=== PATIENT | male | born 1950 | race Caucasian/White ===

== ENCOUNTER 2019-02-13 05:58 | Inpatient (IN) | payer OTHER ==
[~2019-02-13] VITALS: Ht 170.2 cm; Wt 69.4 kg
[2019-02-13] MEDS ORDERED: MILK175T2 PO (07:14)
[2019-02-13] MEDS ORDERED: CALC600T16 PO (07:14)
[2019-02-13] MEDS ORDERED: GINK60TA PO (07:14)
[2019-02-13] MEDS ORDERED: NIAC500T6 PO (07:14)
[2019-02-13] MEDS ORDERED: BIOT10002 PO (07:14)
[2019-02-13] MEDS ORDERED: ECHI350C PO (07:14)
[2019-02-13] MEDS ORDERED: MULT-1469 PO (07:14)
[2019-02-13] MEDS ORDERED: VITA-423 PO (07:14)
[2019-02-13] MEDS ORDERED: ceFAZolin 1,000 MG VIAL ONE (07:29)
[2019-02-13] MEDS ORDERED: BUPIVACAINE-MPF 0.25% 30 ML VIAL INJ ONE (07:30)
[2019-02-13] MEDS ORDERED: ONDANSETRON 4 MG/2 ML VIAL IVP PRN ×2 (07:35→17:50)
[2019-02-13] MEDS ORDERED: HYDROmorphone 1 MG/ML AMP IVP PRN ×2 (07:35→12:10)
[2019-02-13] MEDS ORDERED: fentaNYL 0.05 MG/ML VIAL ONE ×2 (07:39→11:44)
[2019-02-13] MEDS ORDERED: HYDROmorphone PFS 2 MG/ML SYR ONE (07:39)
[2019-02-13] MEDS ORDERED: PHENYLEPHRINE 10 MG/ML VIAL ONE (07:48)
[2019-02-13] MEDS ORDERED: PROPOFOL 200 MG/20 ML VIAL IV ONE (07:48)
[2019-02-13] MEDS ORDERED: LABETALOL 100 MG/20 ML VIAL ONE ×2 (07:48→11:53)
[2019-02-13] MEDS ORDERED: GLYCOPYRROLATE 0.2 MG/ML VIAL ONE (07:48)
[2019-02-13] MEDS ORDERED: ONDANSETRON 4 MG/2 ML VIAL ONE (07:48)
[2019-02-13] MEDS ORDERED: ROCURONIUM 50 MG/5 ML VIAL IV ONE (07:48)
[2019-02-13] MEDS ORDERED: KETOROLAC 30 MG/ML VIAL ONE (07:48)
[2019-02-13] MEDS ORDERED: SUCCINYLCHOLINE CHLORIDE 200 MG/10 ML VIAL IVP ONE (07:48)
[2019-02-13] MEDS ORDERED: hydrALAZINE 20 MG/ML VIAL ONE (07:48)
[2019-02-13] MEDS ORDERED: DEXAMETHASONE 4 MG/ML VIAL ONE (07:48)
[2019-02-13] MEDS ORDERED: DESFLURANE 240 ML BTL INH ONE (07:48)
[2019-02-13] MEDS ORDERED: MIDAZOLAM 2 MG/2 ML VIAL ONE (11:51)
[2019-02-13] MEDS ORDERED: NACL 0.9% 1,000 ML IV SCH (12:09)
[2019-02-13 12:10] VITALS: BP 133/65
[2019-02-13] MEDS ORDERED: ACETAMINOPHEN 325 MG TAB PO PRN (12:10)
[2019-02-13] MEDS ORDERED: MORPHINE SULFATE 4 MG/ML SYR IV PRN (12:10)
--- NOTE | 2019-02-13 12:10 | NUR ---
PT TRANSFERRED FROM DAY SURGERY S/P RIGHT INGUINAL HERNIA REPAIR DUE TO DIFFICULTY BREATHING AND DECREASED OXYGENATION. PT IS ON O2 MASK AT 6 LPM UPON ARRIVAL. HR 68, BP 158/86, SPO2 93%, RR 20. AFEBRILE, DENIES PAIN. PT IS AAOX4. FOLLOWS COMMAND AND ABLE TO MAKE NEEDS KNOWN. NORMAL SINUS RHYTHM ON MONITOR. S1 +S2 HEARD. ABDOMEN SOFT, NONTENDER, NONDISTENDED WITH ACTIVE BOWEL SOUNDS. THREE BAND-AIDS TO SURGICAL AREA DRY, CLEAN AND INTACT. NO DRAINAGE NOTED. PERIPHERAL IV G20 TO LEFT ANTECUBITAL PATENT AND INTACT. OTHER THAN THREE ABDOMINAL INCISIONS, SKIN IS INTACT, DRY AND WARM TO TOUCH. SCDS IN PLACE. PULSES PALPABLE TO ALL EXTREMITIES. HOB 30 DEGREES, BED IN LOWEST POSITION LOCKED. CALL LIGHT WITHIN REACH. WILL CONTINUE TO MONITOR.
--- NOTE | 2019-02-13 13:20 | NUR ---
DR. LUGO AT BEDSIDE.
--- NOTE | 2019-02-13 13:35 | NUR ---
PT SEEN BY DR. ESCOBAR. WILL FOLLOW UP ON ORDERS.
[2019-02-13 14:00] VITALS: BP 124/76
--- NOTE | 2019-02-13 14:50 | NUR ---
PT FEELS THE URGE TO URINATE. URINAL PROVIDED. PT UNABLE TO VOID AFTER TRYING A FEW MINUTES, STATED HE WILL REST AND WILL TRY AGAIN LATER. WILL CONTINUE TO MONITOR.
[2019-02-13 16:00] VITALS: BP 119/77
--- NOTE | 2019-02-13 16:40 | NUR ---
STRAIGHT CATHETERIZED ORDERED. 400 ML CLEAR YELLOE URINE OUTPUT NOTED. PT STATED HE FEELS BETTER.
--- NOTE | 2019-02-13 16:50 | NUR ---
PT C/O CHEST PAIN AT MID CHEST AREA. DR. ESCOBAR MADE AWARE. ORDERS RECEIVED.
[2019-02-13 17:09] LABS: BASOPHILS % (AUTO) 0.1 % (0.0-2.0); HEMOGLOBIN 16.1 g/dL (12.0-18.0); LYMPHOCYTES # (AUTO) 1.6 K/uL (2.0-11.5); LYMPHOCYTES % (AUTO) 12.7 % (20.5-51.1); MEAN CORPUSCULAR HEMOGLOBIN 33 pg (27-31); MEAN CORPUSCULAR HGB CONC 34 g/dL (33-37); MEAN CORPUSCULAR VOLUME 97.3 fL (80-94); MONOCYTES # (AUTO) 0.6 K/uL (0.8-1.0); MONOCYTES % (AUTO) 4.7 % (1.7-9.3); NEUTROPHILS # (AUTO) 10.4 K/uL (1.8-7.7); NEUTROPHILS % (AUTO) 82.5 % (42.2-75.2); PLATELET COUNT (AUTO) 217 K/uL (140-450); RED BLOOD CELL COUNT(AUTO) 4.93 MIL/uL (4.20-6.10); WHITE BLOOD COUNT (AUTO) 12.7 K/uL (4.8-10.8)
--- NOTE | 2019-02-13 17:10 | NUR ---
DR. PUENTE IN TO SEE AND EXAMINE PT. WILL FOLLOW UP ON ORDERS.
[2019-02-13 17:21] LABS: ANION GAP 14.4 (8-16); CARBON DIOXIDE 27.1 mmol/L (21-32); CREATININE 1.3 mg/dL (0.7-1.3); POTASSIUM 4.5 mmol/L (3.5-5.1)
--- NOTE | 2019-02-13 17:30 | NUR ---
OH IN TO SEE PT, MADE AWARE THAT PT C/O ANXIETY AND NAUSEA. ORDERS RECEIVED.
[2019-02-13] MEDS ORDERED: LORazepam 0.5 MG TAB PO PRN (17:50)
[2019-02-13] MEDS ORDERED: diphenhydrAMINE 50 MG CAP PO PRN (17:50)
[2019-02-13 18:00] VITALS: BP 112/62
--- NOTE | 2019-02-13 18:00 | NUR ---
TELEPHONE REPORT GIVEN TO OSMAN HOWE FROM TELEMETRY. PT TRANSFERRING TO TELEMETRY ROOM 120A. PT IN STABLE CONDITION. NO S/SX OF DISTRESS NOTED AT THIS TIME.
--- NOTE | 2019-02-13 18:15 | NUR ---
RECEIVED REPORT FROM OSMAN DEVLIN. PATIENT ON TELE MONITOR AND STANDARD PRECAUTIONS IN PLACE. PATIENT AAOX4 AND ON 4 L O2 NC, NO DISTRESS NOTED. SKIN INTACT. PATIENT AMBULATORY AND CONTINENT. [address] S/P R INGUINAL HERNIA REPAIR. IV ON L AC 20 G SALINE LOCK, IV ASYMPTOMATIC PATENT AND INTACT. BED IN LOW POSITION, CALL LIGHT WITHIN REACH, SIDE RAILS X2 UP
--- NOTE | 2019-02-13 19:23 | NUR ---
BEDSIDE REPORT GIVEN TO OSMAN RODRIGUEZ. PATIENT ENDORSED IN STABLE CONDITION
--- NOTE | 2019-02-13 19:30 | NUR ---
RECEIVED REPORT FROM DAY SHIFT NURSE. PATIENT AWAKE, ALERT, AND COOPERATIVE. S/P R INGUINAL HERNIA REPAIR [address] DRESSING INTACT AND DRY. RESPIRATION EVEN UNLABORED ON 4L O2 NC. NO DISTRESS NOTED. SKIN IS WARM AND DRY. IV PATENT AND INTACT. PATIENT AMBULATORY AND ABLE TO MAKE NEEDS KNOWN. PLAN OF CARE REVIEWED AND DISCUSSED. ALL SAFETY MEASURES IN PLACE. BED IN LOW POSITION. CALL LIGHT WITHIN REACH AND VERBALIZES ITS USE. WILL CONTINUE TO MONITOR.
[2019-02-13 20:00] VITALS: BP 108/62
--- NOTE | 2019-02-13 20:50 | NUR ---
PATIENT COMPLAINED OF RESTLESSNESS PRN ATIVAN GIVEN PER ORDER. WILL CONTINUE TO MONITOR
[2019-02-13] MEDS: SODIUM CHLORIDE FLUSH 10 ML SYR IVF SCH (20:51)
--- NOTE | 2019-02-13 22:30 | NUR ---
PATIENT TOOK OFF HIS NASAL CANNULA AND STATED "I DON'T NEED IT ANYMORE". EDUCATED THE RISK AND BENEFITS OF IT 2X STILL REFUSED. CHECKED PATIENT O2, PATIENT SATING 94% ON ROOM AIR. NO DISTRESS NOTED WILL CONTINUE TO MONITOR
[2019-02-13] MEDS ORDERED: ZOLPIDEM 10 MG TAB PO PRN (22:50)
--- NOTE | 2019-02-13 23:35 | NUR ---
PATIENT COMPLAINED OF NOT BEING ABLE TO FALL ASLEEP AND ASKED FOR SLEEPING AID. PRN AMBIEN ADMINISTERED PER ORDER. WILL CONTINUE TO MONITOR
[2019-02-14] VITALS: BP 108/61
--- NOTE | 2019-02-14 | NUR ---
VITALS WERE TAKEN. PATIENT CONDITION STABLE. NO DISTRESS NOTED. WILL CONTINUE TO MONITOR
--- NOTE | 2019-02-14 02:00 | NUR ---
CHECKED PATIENT. PATIENT SLEEPING RESPIRATION EVEN UNLABORED ON ROOM AIR SATING 94% NO DISTRESS NOTED. WILL CONTINUE TO MONITOR
[2019-02-14 04:00] VITALS: BP 111/69
--- NOTE | 2019-02-14 04:00 | NUR ---
VITALS WERE TAKEN. PATIENT CONDITION STABLE. NO DISTRESS NOTED. WILL CONTINUE TO MONITOR
[2019-02-14] MEDS: SODIUM CHLORIDE FLUSH 10 ML SYR IVF SCH (05:19)
[2019-02-14 06:31] LABS: BASOPHILS % (AUTO) 0.2 % (0.0-2.0); EOSINOPHILS % (AUTO) 0.2 % (0.0-4.0); HEMATOCRIT 43.3 % (36-52); HEMOGLOBIN 14.8 g/dL (12.0-18.0); LYMPHOCYTES # (AUTO) 2.4 K/uL (2.0-11.5); LYMPHOCYTES % (AUTO) 20.5 % (20.5-51.1); MEAN CORPUSCULAR HEMOGLOBIN 33 pg (27-31); MEAN CORPUSCULAR HGB CONC 34 g/dL (33-37); MEAN CORPUSCULAR VOLUME 96.1 fL (80-94); MONOCYTES # (AUTO) 1.2 K/uL (0.8-1.0); MONOCYTES % (AUTO) 10.2 % (1.7-9.3); NEUTROPHILS # (AUTO) 7.9 K/uL (1.8-7.7); NEUTROPHILS % (AUTO) 68.9 % (42.2-75.2); PLATELET COUNT (AUTO) 186 K/uL (140-450); RED CELL DISTRIBUTION WIDTH 13.9 % (11.6-13.7); WHITE BLOOD COUNT (AUTO) 11.5 K/uL (4.8-10.8)
--- NOTE | 2019-02-14 07:18 | NUR ---
ENDORSED PATIENT TO DAY SHIFT NURSE. PATIENT CONDITION STABLE.
--- NOTE | 2019-02-14 07:19 | NUR ---
RECEIVED REPORT FROM [employer] TE[employer] MEMBER NURSE JENNIFER FOR CONTINUITY OF CARE. PT IN STABLE CONDITION. RESPIRATIONS EVEN AND UNLABORED. ROOM AIR. IV INTACT AND PATENT. SAFETY MEASURES IN PLACE. CALL LIGHT AT BEDSIDE. WILL CONTINUE TO MONITOR.
--- NOTE | 2019-02-14 07:50 | NUR ---
PT REFUSED TO WEAR HAND [employer] AT THIS TIME.
--- NOTE | 2019-02-14 07:55 | NUR ---
[address] IF PT IS IN STABLE CONDITION, VITALS STABLE THEN DISCHARGE PT. PT C/O READINESS TO GO HOME AND WILL AMA SOON. PT IN STABLE CONDITION AT THIS TIME. VITALS STABLE. ROOM AIR.
--- NOTE | 2019-02-14 07:59 | NUR ---
PATIENT HAS BEEN SCREENED AND CATEGORIZED LOW NUTRITION RISK. PATIENT WILL BE SEEN WITHIN 7 DAYS OF ADMISSION. 02/20/[address]
[2019-02-14 08:00] VITALS: BP 116/71
[2019-02-14] MEDS ORDERED: HYDR-5122 PO (08:25)
--- NOTE | 2019-02-14 08:45 | NUR ---
GAVE DISCHARGE INSTRUCTIONS AND PRESCRIPTION TO GIVE TO HOME PHARMACY, PT VERBALIZED UNDERSTANDING OF INSTRUCTIONS. IV REMOVED, LUMEN INTACT. PT DENIES PAIN AT THIS TIME. ID BAND REMOVED. PT REFUSED WHEELCHAIR. PT ESCORTED TO LOBBY IN STABLE CONDITION. FRIEND WAITING WITH VEHICLE.
== END 2019-02-14 08:45 | disposition home or self-care (01) | DRG 351 ==
LOC: MDS 05:58 → MMU 06:09 → MIC 12:10 → MLD 12:10 → MTU 18:43 → MDS 18:52
PROVIDERS: ADMIT Surgery; ATTEND Surgery
PROC: 0YU54JZ Supplement Right Inguinal Region with Synthetic Substitute, Percutaneous Endoscopic Approach (ICD-10-PCS; principal; 2019-02-13 07:30)
DX: K40.90 Unilateral inguinal hernia, without obstruction or gangrene, not specified as recurrent (principal); T79.7XXA Traumatic subcutaneous emphysema, initial encounter; J93.83 Other pneumothorax; F17.210 Nicotine dependence, cigarettes, uncomplicated
CPT/HCPCS: 36415; 71045; 80048; 84484; 85025; 87081; 93005; C1758; C1781; J0330; J0360; J0690; J1100; J1170; J1885; J2250; J2270; J2370; J2405; J2704; J3010; J3490; J7030; J7060; J7120; Q0092